=== PATIENT | male | born 1960 | race Caucasian/White ===

== ENCOUNTER 2018-02-25 11:06 | Outpatient (REF) | payer MEDICAID, SELFPAY ==
[2018-02-25 20:04] LABS: COMMENT (LAB VIEW ONLY) 73.97 mg/dL; Microalb ug/mg Crea 5.7 ug/mg Cr
== END 2018-02-25 11:26 ==
LOC: NCHCN 11:06
PROVIDERS: PCP Nurse Practitioner Adult Health; Visit Provider Internal Medicine
DX: E11.9 Type 2 diabetes mellitus without complications (principal)
CPT/HCPCS: 82043; 82570

== ENCOUNTER 2018-07-20 15:29 | Outpatient (REF) | payer MEDICAID, SELFPAY ==
[2018-07-20 21:00] LABS: Prothrombin Time 9.9 sec (9.3-11.0)
[2018-07-20 21:01] LABS: Abs Immature Grans 0.02 k/cumm (0.0-0.09); Absolute Basophil Count 0.03 k/cumm (0.0-0.2); Absolute Eosinophil Count 0.34 k/cumm (0.0-0.7); Absolute Lymphocyte Count 2.14 k/cumm (1.2-3.4); Absolute Monocyte Count 0.68 k/cumm (0.11-0.7); Absolute Neutrophil Count 6.24 k/cumm (1.2-6.7); Basophils % 0.3; Eosinophils % 3.6; HCT 45.5 % (40.0-50.0); Immature Grans % 0.2; Lymphocytes % 22.6; Mean Corp. HGB Concentration 35.2 g/dL (32.0-36.0); Mean Corpuscular Hemoglobin 33.4 pg (27.0-33.0); Mean Platelet Volume 12.8 fL (8.0-11.0); Monocytes % 7.2; Neutrophils % 66.1; Platelet Count 238 x1000/uL (130-400); RBC 4.79 m/cumm (4.50-6.00); RBC Distribution Width 13.3 % (11.8-14.1); White Blood Cell Count 9.45 k/cumm (4.4-10.8)
[2018-07-20 21:31] LABS: ALT 44 U/L (12-78); AST 32 U/L (15-37); Albumin 4.2 g/dL (3.4-5.0); Alkaline Phosphatase 99 U/L (46-116); Anion Gap 8.6 mmol/L (3-11); BUN 18 mg/dL (7-18); Bilirubin, Total 0.4 mg/dL (0.2-1.0); CO2 29.4 mmol/L (21.0-32.0); CREATININE 1.11 mg/dL (0.70-1.30); Calcium 9.3 mg/dL (8.5-10.1); Chloride 103 mmol/L (98-107); Glucose 92 mg/dL (70-100); Potassium 4.8 mmol/L (3.5-5.1); Sodium 141 mmol/L (136-145); Total Protein 7.5 g/dL (6.4-8.2)
== END 2018-07-20 15:49 ==
LOC: NCHCN 15:29
PROVIDERS: PCP Nurse Practitioner Adult Health; Visit Provider Internal Medicine
DX: F17.210 Nicotine dependence, cigarettes, uncomplicated (principal); R91.8 Other nonspecific abnormal finding of lung field
CPT/HCPCS: 80053; 85025; 85610

== ENCOUNTER 2019-10-20 20:23 | Outpatient (REF) | payer OTHER, SELFPAY ==
[2019-10-20 20:47] LABS: ALT 42 U/L (16-63); BUN 15 mg/dL (7-18); CREATININE 1.14 mg/dL (0.70-1.30); Calcium 9.5 mg/dL (8.5-10.1); Chloride 102 mmol/L (98-107); Glucose 68 mg/dL (74-106); Hemoglobin A1C 7.6 % (3.8-5.6); LDL CHOLESTEROL 72 mg/dL (<100); Potassium 4.6 mmol/L (3.5-5.1); Sodium 139 mmol/L (136-145)
[2019-10-20 20:59] LABS: Creatine Kinase 96 U/L (39-308)
== END 2019-10-20 20:43 ==
LOC: NCHCN 20:23
PROVIDERS: PCP Nurse Practitioner Adult Health; Visit Provider Internal Medicine
DX: E11.9 Type 2 diabetes mellitus without complications (principal); I10 Essential (primary) hypertension; M79.10 Myalgia, unspecified site
CPT/HCPCS: 80048; 82550; 83721; 83036; 84460

== ENCOUNTER 2020-05-17 18:53 | Outpatient (REF) | payer OTHER, SELFPAY ==
[2020-05-20 17:50] LABS: COVID-19 RT-PCR UVMMC Result Negative (Negative)
== END 2020-05-17 19:13 ==
LOC: NCHCN 18:53
PROVIDERS: PCP Nurse Practitioner Adult Health; Visit Provider Internal Medicine
DX: G44.89 Other headache syndrome (principal); M79.18 Myalgia, other site
CPT/HCPCS: U0003

== ENCOUNTER 2020-08-16 21:35 | Outpatient (REF) | payer OTHER, SELFPAY ==
[2020-08-16 16:30] LABS: COMMENT (LAB VIEW ONLY) 82.71 mg/dL; Microalb ug/mg Crea 9.4 ug/mg Cr
== END 2020-08-16 21:36 | disposition home or self-care (01) ==
LOC: NCHCN 21:35
PROVIDERS: PCP Nurse Practitioner Adult Health; Visit Provider Internal Medicine
DX: I10 Essential (primary) hypertension (principal); E78.5 Hyperlipidemia, unspecified; F17.210 Nicotine dependence, cigarettes, uncomplicated; M54.31 Sciatica, right side
CPT/HCPCS: 82043; 82570

== ENCOUNTER 2021-01-23 17:23 | Outpatient (REF) | payer OTHER, SELFPAY ==
[2021-01-23 19:37] LABS: ALT 44 U/L (16-63); Anion Gap 13.3 mmol/L (3-11); BUN 28 mg/dL (7-18); CO2 22.7 mmol/L (21.0-32.0); CREATININE 1.2 mg/dL (0.70-1.30); Calcium 9.5 mg/dL (8.5-10.1); Chloride 102 mmol/L (98-107); Glucose 128 mg/dL (74-106); LDL CHOLESTEROL 70 mg/dL (<100); Potassium 5.4 mmol/L (3.5-5.1); Sodium 138 mmol/L (136-145)
== END 2021-01-23 17:24 | disposition home or self-care (01) ==
LOC: NCHCN 17:23
PROVIDERS: PCP Nurse Practitioner Adult Health; Visit Provider Internal Medicine
DX: E11.9 Type 2 diabetes mellitus without complications (principal); I10 Essential (primary) hypertension; W11.XXXA Fall on and from ladder, initial encounter
CPT/HCPCS: 80048; 83721; 84460

== ENCOUNTER 2021-06-24 09:49 | Outpatient (REF) | payer OTHER, SELFPAY ==
[2021-06-24 20:33] LABS: Potassium 4.5 mmol/L (3.5-5.1)
[2021-06-24 20:41] LABS: Hemoglobin A1C 7.5 % (<5.7)
[2021-06-25 17:55] LABS: PSA, Screening 0.5 ng/mL (0.0-4.5)
== END 2021-06-24 09:50 | disposition home or self-care (01) ==
LOC: NCHCN 09:49
PROVIDERS: PCP Nurse Practitioner Adult Health; Visit Provider Internal Medicine
DX: E11.9 Type 2 diabetes mellitus without complications (principal); E87.5 Hyperkalemia; N39.41 Urge incontinence; Z12.5 Encounter for screening for malignant neoplasm of prostate
CPT/HCPCS: 84153; 83036; 84132

== ENCOUNTER 2021-12-22 15:46 | Outpatient (REF) | payer OTHER, SELFPAY ==
[2021-12-22 19:38] LABS: ALT 40 U/L (16-63); Anion Gap 11.1 mmol/L (3-11); BUN 24 mg/dL (7-18); CO2 25.9 mmol/L (21.0-32.0); CREATININE 1.2 mg/dL (0.70-1.30); Calcium 9.5 mg/dL (8.5-10.1); Calculated LDL 65 mg/dL (<100); Chloride 103 mmol/L (98-107); Cholesterol 139 mg/dL (<200); Glucose 98 mg/dL (74-106); HDL Cholesterol 39 mg/dL (40-60); Potassium 4.4 mmol/L (3.5-5.1); Sodium 140 mmol/L (136-145); Triglyceride 177 mg/dL (<150)
== END 2021-12-22 15:47 | disposition home or self-care (01) ==
LOC: NCHCN 15:46
PROVIDERS: PCP Nurse Practitioner Adult Health; Visit Provider Internal Medicine
DX: E11.9 Type 2 diabetes mellitus without complications (principal); I35.0 Nonrheumatic aortic (valve) stenosis; F17.210 Nicotine dependence, cigarettes, uncomplicated
CPT/HCPCS: 80048; 80061; 84460

== ENCOUNTER 2022-04-03 14:15 | Outpatient (REF) | payer OTHER, SELFPAY ==
[2022-04-03 19:28] LABS: COMMENT (LAB VIEW ONLY) 58.69 mg/dL
== END 2022-04-03 14:16 | disposition home or self-care (01) ==
LOC: NCHCN 14:15
PROVIDERS: PCP Nurse Practitioner Adult Health; Visit Provider Internal Medicine
DX: E11.9 Type 2 diabetes mellitus without complications (principal)
CPT/HCPCS: 82043; 82570

== ENCOUNTER 2023-07-21 12:31 | Outpatient (REF) | payer OTHER, SELFPAY ==
[2023-07-21 22:18] LABS: ALT 38 U/L (16-63); Anion Gap 10.8 mmol/L (3-11); BUN 22 mg/dL (7-18); CO2 28.2 mmol/L (21.0-32.0); CREATININE 1.3 mg/dL (0.70-1.30); Calcium 9.8 mg/dL (8.5-10.1); Calculated LDL 61 mg/dL (<100); Chloride 102 mmol/L (98-107); Cholesterol 132 mg/dL (<200); Estimated GFR 61.35 (mL/min/1.73m2); Glucose 63 mg/dL (74-106); HDL Cholesterol 36 mg/dL (40-60); Potassium 4.4 mmol/L (3.5-5.1); Sodium 141 mmol/L (136-145); Triglyceride 177 mg/dL (<150)
[2023-07-21 22:29] LABS: Creatine Kinase 65 U/L (39-308)
== END 2023-07-21 12:32 | disposition home or self-care (01) ==
LOC: NCHCN 12:31
PROVIDERS: PCP Nurse Practitioner Adult Health; Visit Provider Internal Medicine
DX: E78.5 Hyperlipidemia, unspecified (principal)
CPT/HCPCS: 80048; 80061; 82550; 84460

== ENCOUNTER 2024-08-30 17:28 | Outpatient (REF) | payer MEDICARE, SELFPAY ==
[2024-08-30 20:33] LABS: ALT 31 U/L (16-63); Anion Gap 7.8 mmol/L (3-11); BUN 19 mg/dL (7-18); CO2 31.2 mmol/L (21.0-32.0); CREATININE 1.3 mg/dL (0.70-1.30); Calcium 9.4 mg/dL (8.5-10.1); Chloride 104 mmol/L (98-107); Creatine Kinase 77 U/L (39-308); Estimated GFR 60.96 (mL/min/1.73m2); Glucose 108 mg/dL (74-106); Potassium 4.6 mmol/L (3.5-5.1); Sodium 143 mmol/L (136-145)
[2024-08-30 20:50] LABS: COMMENT (LAB VIEW ONLY) 93.17 mg/dL
[2024-08-30 21:08] LABS: Calculated LDL 51 mg/dL (<100); Cholesterol 123 mg/dL (<200); HDL Cholesterol 38 mg/dL (>or=40); Triglyceride 172 mg/dL (<150)
== END 2024-08-30 17:29 | disposition home or self-care (01) ==
LOC: NCHCN 17:28
PROVIDERS: PCP Nurse Practitioner Adult Health; Visit Provider Internal Medicine
DX: E11.40 Type 2 diabetes mellitus with diabetic neuropathy, unspecified (principal); I10 Essential (primary) hypertension; E78.5 Hyperlipidemia, unspecified
CPT/HCPCS: 80048; 80061; 82550; 82043; 82570; 84460